=== PATIENT | male | born 1975 | race Caucasian/White ===

== ENCOUNTER 2025-06-07 18:03 | Emergency (ER) | payer MEDICAID, OTHER ==
[~2025-06-07] VITALS: Ht 180.3 cm; Wt 95.5 kg
[2025-06-07 18:06] VITALS: BP 124/80; PULSE 76; RESP 18; TEMP 98; O2SAT 99
[2025-06-07] MEDS ORDERED: BUPR1TAB46 SL (18:06)
[2025-06-07] MEDS ORDERED: AMLO-258 PO (18:06)
[2025-06-07] MEDS: PROPARACAINE HCL 0.5% 15 ML OPHTHALMIC SOLUTION OU ONE (20:30)
[2025-06-07] MEDS: FLUORESCEIN SODIUM 1 MG STRIP OU ONE (20:32)
[2025-06-07] MEDS ORDERED: TOBR5DRO44 OU (22:27)
== END 2025-06-07 23:00 | disposition home or self-care (01) ==
LOC: EMS 18:03
DX: H10.89 Other conjunctivitis (principal); I10 Essential (primary) hypertension; Z79.891 Long term (current) use of opiate analgesic; Z79.899 Other long term (current) drug therapy
CPT/HCPCS: 99283